=== PATIENT | female | born 1980 | race Caucasian/White ===

== ENCOUNTER 2021-07-26 08:53 | Outpatient (CLI) | payer OTHER, SELFPAY ==
--- NOTE | 2021-07-26 | ECHO_ITS ---
Patient Info Name: Abena Herrera Age: 40 years : 1980 Gender: Female Ht: 64 in Wt: 123 lbs BSA: 1.59 m2 HR: 58 bpm BP: 104 / 61 mmHg Technical Quality: Good Exam Date: 07/26/2021 10:28 AM Exam Location: [facility] Patient Status: Outpatient Admit Date: 07/26/2021 Staff Ordering Physician: Kelly, Malaika EL Analyst [employer]: Funmilayo Rojo RDCS Attending Provider: LucyMalaika Exam Type: CA echo doppler color flow Study Info Indications R06.09 - Other forms of dyspnea Complete two-dimensional, color flow and Doppler transthoracic echocardiogram is performed. Summary 1. Complete two-dimensional, color flow and Doppler transthoracic echocardiogram is performed. 2. Normal LV wall thickness, LV size at upper limits of normal, normal LV systolic function, ejection fraction 55-60%. Indeterminate diastolic function. No significant valvular abnormality. Normal PA pressure. Left Ventricle Left ventricular chamber dimension is normal. Left ventricular systolic function is normal, estimated at 55-60%. There is no increased left ventricular wall thickness. Left ventricular septal wall motion is normal. The left ventricular diastolic function is indeterminate. Right Ventricle Right ventricular chamber dimension is normal. Right ventricular systolic function is normal. Left Atria Left atrial chamber dimension is normal. Right Atria Right atrial chamber dimension is normal. Aortic Valve The aortic valve is trileaflet. There is no aortic valve sclerosis. There is no aortic valve stenosis. There is no aortic valve regurgitation. Pulmonic Valve The pulmonic valve is normal. There is no pulmonic regurgitation. Mitral Valve The mitral valve has normal leaflets. There is no mitral valve stenosis. There is no mitral valve regurgitation. Tricuspid Valve The tricuspid valve leaflets are normal. There is trace tricuspid valve regurgitation. No pulmonary hypertension, estimated pulmonary arterial systolic pressure is 24 mmHg. Pericardium/Pleural The pericardium appears normal. There is no pericardial effusion. Inferior Vena Cava Normal inferior vena cava with >50% collapse upon inspiration consistent with normal right atrial pressure, 10 mmHg. Aorta The aortic root size at the sinus of Valsalva is normal. The prox ascending aorta size is normal. Left Ventricular Outflow Tract Name Value Normal LVOT 2D LVOT Diameter 1.9 cm LVOT Doppler LVOT Peak Gradient 5 mmHg LVOT Mean Gradient 2 mmHg LVOT VTI 25 cm LVOT VTI/AV VTI Ratio 1.0 LVOT Stroke Volume 72 ml Pulmonic Valve Name Value Normal RVOT Doppler RVOT Peak Gradient 3 mmHg PV Dopp
--- NOTE | 2021-07-26 13:45 | WPDSIXMINUTE ---
Six Minute Walk Procedure Procedure Performed Pulmonary Stress Test (6 min walk) Six Minute Walk This is a 6 minute walk test. The test was performed and interpreted in accordance with the 2014 ERS/ATS task force guidelines. Findings: The patient's resting room air oxygen saturation measured by pulse oximetry was 100% and heart rate was 61 bpm. Patient ambulated for 396 meters and oxygen saturation remained 96 to 100%. Heart rate at the end of the study was 81 bpm. The patient did not qualify for supplemental oxygen at rest or with ambulation. There are no prior studies for comparison.
--- NOTE | 2021-07-26 13:47 | WPDPFTINT ---
PFT Procedure Performed PFT Procedure Performed Spirometry with Pre/Post Bronchodilator Plethysmography (Lung Vol) Diffusing Cap (DLCO) Flow Vol Loop PFT Interpretation This is a pulmonary function test with pre and post-bronchodilator spirometry, plethysmography and diffusing capacity. The test was performed and results interpreted in accordance with the 2019 and 2005 ATS/ERS Task Force guidelines respectively using the Global Lung Function Initiative-2012 reference equations. Patient demonstrated good effort and cooperation. Reproducibility criteria were met. The quality of the pre bronchodilator spirometry maneuver was Grade A and post bronchodilator spirometry maneuver was Grade A. Findings: Spirometry: The contour the inspiratory and expiratory flow tracing are normal. The pre bronchodilator FVC is 3.46 L, 93% predicted. The pre bronchodilator FEV1 is 2.80 L, 92% predicted. The FEV1: FVC ratio was 81%. The post bronchodilator FVC is 3.43 L, representing 1% decrease. The post bronchodilator FEV1 is 2.99 L, representing a 7% increase. The post bronchodilator FEV1: FVC ratio was 87%. Plethysmography: The total lung capacity is 4.63 L, 91% predicted. Functional residual capacity is 2.70 L, 96% predicted. The residual volume is 1.17 L, 73% predicted. Diffusing capacity: The diffusing capacity unadjusted for hemoglobin and carboxyhemoglobin is 20.8, 87% predicted. The diffusing capacity adjusted for alveolar volume is 5.05, 106% predicted. Impression: The spirometry is normal without evidence of an obstructive abnormality. There is no significant improvement after inhaling a single dose of albuterol. The lung volumes are normal. The diffusing capacity is normal. There are no prior studies for comparison
== END 2021-07-26 08:54 | disposition home or self-care (01) ==
PROVIDERS: Visit Provider Nurse Practitioner
DX: R06.09 Other forms of dyspnea (principal); Z86.16 Personal history of COVID-19
CPT/HCPCS: 93306; 94375; 94618; 94726; 94729

== ENCOUNTER 2021-10-06 13:07 | Outpatient (CLI) | payer OTHER, SELFPAY ==
--- NOTE | 2021-10-11 06:51 | P.METCHAL_ITS ---
Methacholine Procedure Perform Procedure Performed Methacholine Challenge Methacholine Challenge Methacholine Challenge: This is a methacholine challenge test. The test was performed and interpreted in accordance with the 2017 ERS technical standard, endorsed by the ATS, using the GLI 2012 reference equations. Testing was performed with increasing doses of nebulized methacholine following a quadrupling dosage protocol. The methacholine dose was delivered via the [employer] nebulizer using a 1-minutes tidal breathing protocol. The best post-methacholine FEV1 values were used to determine the change from the post diluent FEV1. The delivered dose of methacholine was used to calculate the provocative dose causing a 20% fall in FEV1 (PD 20). Findings: Baseline FEV1 2.84 L, 94% predicted. Post diluent FEV1 2.89 L Post 1.81 mcg methacholine FEV1 2.93 L, increased 2% Post 7.26 mcg methacholine FEV1 2.88 L, decreased 0% Post 29.03 mcg methacholine FEV1 2.83 L, decreased 2% Post 116.1 mcg methacholine FEV1 2.73 L, decreased 6% Post 464.4 mcg methacholine FEV1 2.26 L, decreased 22% Post albuterol nebulization FEV1 2.80 L Impression: The PD20 is 397 mcg which is categorized as borderline airway hype rresponsiveness. There are no prior methacholine challenge studies for comparison
== END 2021-10-06 13:08 | disposition home or self-care (01) ==
LOC: ANHPFT 13:09
PROVIDERS: Visit Provider Nurse Practitioner
DX: U07.1 COVID-19 (principal); R06.00 Dyspnea, unspecified
CPT/HCPCS: 94070; J7674